=== PATIENT | male | born 1980 | race Caucasian/White ===

== ENCOUNTER 2017-07-24 15:51 | Emergency (ER) | payer SELFPAY ==
[~2017-07-24] VITALS: Ht 170.2 cm; Wt 81.6 kg
[~2017-07-24 15:51] MED LIST: CHLORASEPTIC T180 ML MM; HYDROMORPHONE HC2 MG PO; NO MEDICATIONS; ROXICET 5/325500 ML PO
[2017-07-24] MEDS ORDERED: NO HOME MEDICATION XX (17:54)
[2017-07-24] MEDS ORDERED: KEFLEX500 M4 PO (18:12)
== END 2017-07-24 18:26 ==
LOC: EDMED 15:51
PROC: 0HQEXZZ Repair Left Lower Arm Skin, External Approach (ICD-10-PCS; principal; 2017-07-24)
DX: S51.812A Laceration without foreign body of left forearm, initial encounter (principal); F17.210 Nicotine dependence, cigarettes, uncomplicated; Z23 Encounter for immunization; Z88.1 Allergy status to other antibiotic agents; W26.0XXA Contact with knife, initial encounter; Y93.89 Activity, other specified; Y92.019 Unspecified place in single-family (private) house as the place of occurrence of the external cause; Y99.8 Other external cause status